=== PATIENT | male | born 1950 | race Caucasian/White ===

== ENCOUNTER 2024-10-31 01:44 | Emergency (ER) | payer MEDICARE, MEDICAID, SELFPAY ==
[2024-10-31] VITALS (19 sets, daily range): BP systolic 111–201; BP diastolic 56–148; PULSE 56–94; RESP 13–24; TEMP 36.8; O2SAT 94–100; BMI 45.6
--- NOTE | 2024-10-31 01:53 | EKG_ITS ---
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
--- NOTE | 2024-10-31 01:57 | DI.RAD.S_ITS ---
PROCEDURE: XR CHEST 1V INDICATIONS: chest pain TECHNIQUE: One view of the chest was acquired. COMPARISON: None. FINDINGS: Surgical changes and devices: Left chest wall dual lumen central venous catheter tip is in SVC. Lungs and pleura: Lungs are clear. No pleural effusions or pneumothorax. Mediastinum: Mediastinal contours appear normal. Heart size is normal. Bones and chest wall: No suspicious bony lesions. Overlying soft tissues appear unremarkable. IMPRESSION: No acute cardiopulmonary pathology. No discrepancies. Dictated by: Brien Isabel M.D. on 10/31/2024 at 8:19 Approved by: Brien Isabel M.D. on 10/31/2024 at 8:20
[2024-10-31] MEDS: ONDANSETRON 4 MG ODT SL (02:08)
[2024-10-31 03:16] LABS: Add Manual Diff / Slide Review NO; Basophils Absolute Auto 200 /uL (0-100); Basophils Percent Auto 2.1 % (0-2); Eosinophils Absolute Auto 300 /uL (0-450); Lymphocytes Absolute Auto 2600 /uL (1100-4500); Mean Corpuscular HGB Conc 34.1 % (30-36); Mean Corpuscular Hemoglobin 29.3 PG (26-34); Mean Corpuscular Volume 86.1 fL (80-100); Monocytes Absolute Auto 800 /uL (0-900); Monocytes Percent Auto 8.9 % (3-14); Neutrophils Absolute Auto 4900 /uL (1500-7000); Platelet Count 137 X10^3/uL (150-400); Red Blood Cell Count 4.42 X10^6/uL (4.5-5.9); Red Cell Distribution Width 15.4 % (11.6-14.8); White Blood Cell Count 8.7 X10^3/uL (4.5-11.0)
[2024-10-31 03:33] LABS: Lactate (Lactic Acid) 1.2 mmol/L (0.7-2.1)
[2024-10-31 03:34] LABS: Alanine Aminotransferase 17 IU/L (<50); Albumin 4.1 g/dL (3.5-5.0); Albumin Globulin Ratio 1.3 (1.0-2.8); Alkaline Phosphatase 70 U/L (38-126); Aspartate Aminotransferase 29 IU/L (17-59); BUN Creatinine Ratio 7.9 (6-22); Bilirubin Total 0.5 mg/dL (0.2-1.3); Blood Urea Nitrogen 48 mg/dL (9-20); Calcium 8.3 mg/dL (8.4-10.2); Carbon Dioxide 22 mmol/L (22-32); Chloride 101 mmol/L (98-107); Creatine Kinase 93 U/L (55-170); Estimated Glomerular Filt Rate 9 mL/min (>60); Globulin 3.1 g/dL (1.7-4.1); Glucose 194 mg/dL (70-99); HEMOLYSIS 15 (0-50); Lipase 210 U/L (23-300); Potassium 4.8 mmol/L (3.4-5.1); Sodium 134 mmol/L (137-145); Total Protein 7.2 g/dL (6.3-8.2)
[2024-10-31 03:40] LABS: Influenza A - CEPHEID Flu A NEGATIVE (NEGATIVE); Influenza B - CEPHEID Flu B NEGATIVE (NEGATIVE); Respiratory Syncytial Virus Negative (Negative)
[2024-10-31 03:46] LABS: Troponin I 0.021 ng/mL (0.01-0.034)
[2024-10-31 03:49] LABS: COVID-19 CEPHEID 4-PLEX PCR Negative (Negative)
--- NOTE | 2024-10-31 03:51 | ED.GENADULT ---
HPI - General Adult General Chief complaint: Weakness Stated complaint: Shaky Time Seen by Provider: 10/31/24 01:56 Source: EMS Mode of arrival: EMS History of Present Illness HPI narrative: 74-year-old male with history of dialysis dependent ESRD, has hemodialysis sessions My[facility]-Dsfwhjmj-Lunokcwd, due for hemodialysis later today, had episode of brief shakiness. No loss of consciousness. No fevers or chills or sweats. Screening EKG unremarkable. Troponin electrolytes unremarkable. Offered further testing, declined. Patient decided that he wanted to go home, transport to [facility] facility. Return precautions discussed. Related Data Home Medications Medication Instructions Recorded Confirmed atorvastatin 80 mg tablet 80 mg PO DAILY 10/31/24 10/31/24 insulin glargine 100 unit/mL (3 14 unit SUBCUT BID 10/31/24 10/31/24 mL) subcutaneous pen (Lantus Solostar U-100 Insulin) levothyroxine 88 mcg tablet 88 mcg PO DAILY 10/31/24 10/31/24 midodrine 10 mg tablet 10 mg PO 3XD 10/31/24 10/31/24 Allergies Allergy/AdvReac Type Severity Reaction Status Date / Time codeine Allergy Verified 10/31/24 01:56 Sulfa (Sulfonamide Allergy Verified 10/31/24 01:56 Antibiotics) Exam Narrative Exam Narrative: GENERAL: Well-developed patient, in mild distress. HEAD: Atraumatic. Normocephalic. EYES: Pupils equal round and reactive. Extraocular motions intact. No scleral icterus. No injection or drainage. ENT: Nose without bleeding, purulent drainage. Throat without erythema, tonsillar hypertrophy or exudate. Airway patent. NECK: Trachea midline. Non tender CARDIOVASCULAR: Regular rate and rhythm without murmurs, gallops, or rubs. RESPIRATORY: Clear to auscultation. Breath sounds equal bilaterally. No wheezes, rales, or rhonchi. GASTROINTESTINAL: Abdomen soft, non-tender, nondistended. EXTREMITIES: No edema or joint tenderness. BACK: Nontender without deformity or crepitance. No flank tenderness. NEURO: AOx3. Motor functions grossly nonfocal SKIN: No rash or erythema of visible areas Initial Vital Signs Initial Vital Signs: Vital Signs Temperature 98.2 F 10/31/24 01:47 Pulse Rate 76 10/31/24 01:47 Respiratory Rate 18 10/31/24 01:47 Blood Pressure 198/100 H 10/31/24 01:47 Pulse Oximetry 100 10/31/24 01:47 Oxygen Delivery Method Room Air 10/31/24 01:47 Course Orders Ordered: ED Orders 10/31/24 01:53 EKG-12 Lead Stat 10/31/24 01:57 XR chest 1V Stat Urinalysis and Microscopic Stat EKG-12 Lead Stat 10/31/24 02:41 Covid-19 + FLU A/B + RSV - PCR Stat 10/31/24 02:44 Complete Blood Count AUTO DIFF Stat Comprehensive Metabolic Panel Stat Lactate (Lactic Acid) Stat Lipase Stat Troponin & CK Cardiac Panel Stat 10/31/24 04:45 Troponin I Stat Sodium Chloride (Normal Saline 0.9%) 1,000 mls @ 150 mls/hr IV CONT PERRY Last Admin: 10/31/24 03:46 Dose: Not Given Documented By: LATRELL Discontinued Medications Ondansetron HCl (Ondansetron 4 Mg/2 Ml Inj) 4 mg IV NOW ONE Stop: 10/31/24 02:01 Last Admin: 10/31/24 03:20 Dose: Not Given Documented By: LATRELL Ondansetron HCl (Ondansetron 4 Mg Odt) 4 mg SL NOW ONE Stop: 10/31/24 02:02 Last Admin: 10/31/24 02:08 Dose: 4 mg Documented By: LATRELL Vital Signs Vital signs: Vital Signs - 8 hr 10/31/24 01:47 Temperature 98.2 F Pulse Rate 76 Respiratory Rate 18 Blood Pressure 198/100 H Pulse Oximetry 100 Oxygen Delivery Method Room Air Medical Decision Making Lab Data 10/31/24 02:44 10/31/24 02:44 Labs: Lab Results 10/31/24 10/31/24 Range/Units 02:41 02:44 WBC 8.7 (4.5-11.0) X10^3/uL RBC 4.42 L (4.5-5.9) X10^6/uL Hgb 13.0 L (13.5-17.5) g/dL Hct 38.0 L (41-53) % MCV 86.1 (80-100) fL MCH 29.3 (26-34) PG MCHC 34.1 (30-36) % RDW 15.4 H (11.6-14.8) % Plt Count 137 L (150-400) X10^3/uL Neut % (Auto) 56.0 (50-75) % Lymph % (Auto) 30.0 (25-40) % [place] % (Auto) 8.9 (3-14) % Eos % (Auto) 3.0 (2-4) % Baso % (Auto) 2.1 H (0-2) % Neut # (Auto) 4900 (4050-3944) /uL Lymph # (Auto) 2600 (8453-0498) /uL [place] # (Auto) 800 (0-900) /uL Eos # (Auto) 300 (0-450) /uL Baso # (Auto) 200 H (0-100) /uL Sodium 134 L (137-145) mmol/L Potassium 4.8 (3.4-5.1) mmol/L Chloride 101 (98-107) mmol/L Carbon Dioxide 22 (22-32) mmol/L BUN 48 H (9-20) mg/dL Creatinine 6.06 H (0.66-1.25) mg/dL Estimated GFR 9 L (>60) mL/min BUN/Creatinine Ratio 7.9 (6-22) Glucose 194 H (70-99) mg/dL Lactate 1.2 (0.7-2.1) mmol/L Calcium 8.3 L (8.4-10.2) mg/dL Total Bilirubin 0.5 (0.2-1.3) mg/dL AST 29 (17-59) IU/L ALT 17 (<50) IU/L Alkaline Phosphatase 70 (38-126) U/L Total Creatine Kinase 93 (55-170) U/L Troponin I 0.021 (0.01-0.034) ng/mL Total Protein 7.2 (6.3-8.2) g/dL Albumin 4.1 (3.5-5.0) g/dL Globulin 3.1 (1.7-4.1) g/dL Albumin/Globulin Ratio 1.3 (1.0-2.8) Lipase 210 (23-300) U/L SARS-CoV-2 (PCR) Negative (Negative) Influenza A (RT-PCR) Flu a negative (NEGATIVE) Influenza B (RT-PCR) Flu b negative (NEGATIVE) RSV (PCR) Negative (Negative) ECG Data Attestation: I personally reviewed and interpreted this ECG as follows: Interpretation: Normal sinus rhythm with heart rate 84, first-degree AV block with AK 210. No obvious ST segment elevation or depression changes. QRS 90, QTC 439. MDM Narrative Medical decision making narrative: 74-year-old male with history of end-stage renal disease, on Oqbgkvc-Muljwzgb-Aicnyzji hemodialysis regimen, due for next HD session later today, had shakiness episode of unclear etiology, with some associated nausea. No shortness of breath, no headache, no stroke-like symptoms. Seems to be recovered without specific treatment. Labs pending. Chest x-ray shows no acute process, see radiology report. No mention of fluid overload changes EKG with first-degree AV block, no acute ischemic changes. Discharge Plan Departure Patient Disposition: Home Clinical Impression: Shakiness Activity Restrictions/Additional Instructions: Resolved shakiness of unclear cause. History of diabetes. History of kidney disease, next hemodialysis rotation do later today. No fever on triage, unremarkable vital signs. Glucose and electrolytes unremarkable. EKG and troponin blood testing unremarkable. Consider further monitoring and interval repeat blood testing troponin, declined for now. You felt better without specific treatment and wanted to go home, did not want further evaluation. Discharged home per your request. Follow up with your traffic superintendent and your primary care provider as scheduled. Follow up with your hemodialysis providers later today as scheduled. Return if change worsening symptoms or any concerns prior. Prescriptions: No Action atorvastatin 80 mg tablet 80 mg PO DAILY levothyroxine 88 mcg tablet 88 mcg PO DAILY midodrine 10 mg tablet 10 mg PO 3XD insulin glargine [Lantus Solostar U-100 Insulin] 100 unit/mL (3 mL) insulin pen 14 unit SUBCUT BID Stand Alone Forms: Patient Portal/API/Survey
== END 2024-10-31 07:11 | disposition home or self-care (01) ==
PROVIDERS: Emergency Provider Emergency Medicine
DX: R25.1 Tremor, unspecified (principal); E11.22 Type 2 diabetes mellitus with diabetic chronic kidney disease; N18.6 End stage renal disease; Z99.2 Dependence on renal dialysis; Z79.4 Long term (current) use of insulin
CPT/HCPCS: 0241U; 36415; 71045; 80053; 82550; 83605; 83690; 84484; 85025; 93005; 93010; 99283; 99284

== ENCOUNTER 2025-01-07 07:55 | Emergency (ER) | payer MEDICARE, MEDICAID, SELFPAY ==
[2025-01-07] VITALS (32 sets, daily range): BP systolic 116–207; BP diastolic 66–105; PULSE 65–73; RESP 14–20; TEMP 36.6; O2SAT 93–99; BMI 31.8
--- NOTE | 2025-01-07 08:04 | EKG_ITS ---
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
--- NOTE | 2025-01-07 08:33 | PC.NURSE ---
2 unsuccessful iv attempts, notified lab for a draw and DI nurse called for assistance.
--- NOTE | 2025-01-07 08:53 | DI.RAD.S_ITS ---
PROCEDURE: XR CHEST 1V INDICATIONS: chest pain TECHNIQUE: One view of the chest was acquired. COMPARISON: [facility], CR, XR CHEST 1V, 10/31/2024, 2:26. FINDINGS: Surgical changes and devices: Left-sided tunneled dialysis catheter with tip projecting over the cavoatrial junction. Lungs and pleura: Lungs are clear. No pleural effusions or pneumothorax. Mediastinum: Mediastinal contours appear normal. Heart size is normal. Bones and chest wall: No suspicious bony lesions. Overlying soft tissues appear unremarkable. IMPRESSION: No acute cardiopulmonary abnormality is seen. Dictated by: Olive Lemus MD, PhD on 01/07/2025 at 9:47 Approved by: Olive Lemus MD, PhD on 01/07/2025 at 9:47
[2025-01-07 09:08] LABS: Alanine Aminotransferase 23 IU/L (<50); Albumin 4.1 g/dL (3.5-5.0); Albumin Globulin Ratio 1.3 (1.0-2.8); Alkaline Phosphatase 64 U/L (38-126); Blood Urea Nitrogen 77 mg/dL (9-20); Calcium 9.0 mg/dL (8.4-10.2); Carbon Dioxide 12 mmol/L (22-32); Chloride 114 mmol/L (98-107); Creatine Kinase 121 U/L (55-170); Globulin 3.2 g/dL (1.7-4.1); Glucose 76 mg/dL (70-99); Sodium 140 mmol/L (137-145); Total Protein 7.3 g/dL (6.3-8.2)
[2025-01-07 09:11] LABS: INR 1.0 (0.9-1.3); Prothrombin Time 11.8 SECONDS (9.4-12.5)
[2025-01-07 09:14] LABS: PTT Partial Thromboplastin Tim 26 SECONDS (25.1-36.5)
[2025-01-07 09:17] LABS: Hematocrit 45.7 % (41-53); Hemoglobin 15.2 g/dL (13.5-17.5); Lymphocytes Absolute Auto 1900 /uL (1100-4500); Mean Corpuscular HGB Conc 33.2 % (30-36); Mean Corpuscular Hemoglobin 28.6 PG (26-34); Mean Corpuscular Volume 86.2 fL (80-100); Platelet Count 130 X10^3/uL (150-400)
[2025-01-07] MEDS: ASPIRIN 81 MG CHEW TAB 324 MG PO (09:22)
[2025-01-07 09:23] LABS: Add Manual Diff / Slide Review SLIDE REVIEW
[2025-01-07 09:25] LABS: Procalcitonin 0.151 ng/mL (<0.5)
[2025-01-07 09:27] LABS: Estimated Glomerular Filt Rate 6 mL/min (>60); HEMOLYSIS 47 (0-50)
[2025-01-07 09:31] LABS: Troponin I 0.217 ng/mL (0.01-0.034)
[2025-01-07 09:32] LABS: Potassium 6.8 mmol/L (3.4-5.1)
[2025-01-07 09:36] LABS: NT-proBNP (BNP-Adult 18+) 10000 pg/mL (<125)
[2025-01-07] MEDS: SODIUM CHLORIDE 0.9% 1,000 ML 150 ML IV (09:45)
[2025-01-07] MEDS: INSULIN REGULAR 100 UNIT/ML 3 ML VIAL IV ×2 (09:45→13:02)
[2025-01-07] MEDS: DEXTROSE 50 % IN WATER 25 GM/50 ML SYRINGE IV ×2 (09:46→13:04)
[2025-01-07] MEDS: SODIUM POLYSTYRENE SULFON/SORB 15 GM/60 ML CUP 30 GM PO (09:47)
[2025-01-07 09:52] LABS: RBC Morphology Normal Morphology
[2025-01-07] MEDS: CALCIUM GLUCONATE 9.3 MEQ in SODIUM CHLORIDE 0.9% 50 ML 140 MEQ IV (10:18)
[2025-01-07] MEDS: ALBUTEROL/IPRATROPIUM 3 ML AMPUL INH (10:31)
[2025-01-07 12:28] LABS: Alanine Aminotransferase 21 IU/L (<50); Albumin 3.8 g/dL (3.5-5.0); Albumin Globulin Ratio 1.3 (1.0-2.8); Alkaline Phosphatase 61 U/L (38-126); Blood Urea Nitrogen 76 mg/dL (9-20); Calcium 9.1 mg/dL (8.4-10.2); Carbon Dioxide 13 mmol/L (22-32); Chloride 114 mmol/L (98-107); Estimated Glomerular Filt Rate 7 mL/min (>60); Globulin 2.9 g/dL (1.7-4.1); Glucose 84 mg/dL (70-99); HEMOLYSIS 18 (0-50); Sodium 141 mmol/L (137-145); Total Protein 6.7 g/dL (6.3-8.2)
[2025-01-07 12:29] LABS: Troponin I 0.503 ng/mL (0.01-0.034)
[2025-01-07 12:29] LABS: Potassium 6.1 mmol/L (3.4-5.1)
[2025-01-07] MEDS: HEPARIN 5,000 UNIT/ML VIAL 5000 UNIT IV (13:02)
[2025-01-07] MEDS: HEPARIN DRIP 25,000 UNIT/500 ML IV.SOLN 20.253 UNIT IV (13:02)
[2025-01-07] MEDS: ALBUTEROL 2.5 MG/3 ML NEB (ADULT) INH (14:02)
--- NOTE | 2025-01-07 14:29 | PC.NURSE ---
Pt refuses second IV at this time. Risks and benefits of refusing secondary line explained by charge nurse. IV heparin started. Next PTT draw 1900, will need straight stick at that time.
[2025-01-07 17:22] LABS: Blood Urea Nitrogen 72 mg/dL (9-20); Calcium 8.9 mg/dL (8.4-10.2); Carbon Dioxide 13 mmol/L (22-32); Chloride 114 mmol/L (98-107); Estimated Glomerular Filt Rate 7 mL/min (>60); Glucose 78 mg/dL (70-99); HEMOLYSIS < 15 (0-50); Sodium 140 mmol/L (137-145)
[2025-01-07 17:24] LABS: Potassium 5.5 mmol/L (3.4-5.1)
--- NOTE | 2025-01-07 17:33 | ED.CHESTPAIN ---
HPI - Chest Pain General Chief Complaint: Chest Pain Stated Complaint: Chest Pain and Short of Breath Time Seen by Provider: 01/07/25 08:53 Source: patient and EMS Mode of arrival: EMS Limitations: no limitations History of Present Illness HPI narrative: Jeff Jung is a 74-year-old man with a history of end-stage renal disease on dialysis who had his nonfunctioning dialysis port replaced on of last week. He subsequently went to dialysis on Monday or Monday he does not remember when and they were unable to successfully use the port for dialysis. Today the patient comes in for left-sided chest pain which was there upon awakening today. He denies any nausea, vomiting, lightheadedness, palpitations, shortness of breath. He denies any abdominal pain. He denies any recent fever chills sweats or illness. He has no other concerns or complaints at this time. Related Data Home Medications ?Medication ?Instructions ?Recorded ?Confirmed atorvastatin 80 mg tablet 80 mg PO DAILY 10/31/24 10/31/24 insulin glargine 100 unit/mL (3 14 unit SUBCUT BID 10/31/24 10/31/24 mL) subcutaneous pen (Lantus Solostar U-100 Insulin) levothyroxine 88 mcg tablet 88 mcg PO DAILY 10/31/24 10/31/24 midodrine 10 mg tablet 10 mg PO 3XD 10/31/24 10/31/24 Allergies Allergy/AdvReac Type Severity Reaction Status Date / Time codeine Allergy Verified 10/31/24 01:56 Sulfa (Sulfonamide Allergy Verified 10/31/24 01:56 Antibiotics) Exam Initial Vital Signs Initial Vital Signs: Vital Signs Pulse Rate 72 01/07/25 08:12 Pulse Oximetry 96 01/07/25 08:12 Const General: cooperative, No in distress and ill appearing (chronically) [facility] Head: normal to inspection, normocephalic and atraumatic Eyes General: Yes appearance normal, both eyes and all related structures Pupils: PERRL EOM: EOM intact bilaterally Neck Neck: normal visual inspection, no meningeal signs, trachea midline, supple and No tender Resp Effort & Inspection: normal respiratory effort Auscultation: clear to auscultation bilaterally Cardio Rate: regular rate Rhythm: regular rhythm Heart Sounds: S1 normal and S2 normal GI Palpation: soft and No tender Auscultation: normal bowel sounds Neuro General: patient alert, patient awake, patient oriented x3 and CN's II-XI intact bilaterally Course Course Course Narrative: Patient seen and examined by myself upon arrival in the ER. He did have tenderness in the location of his chest pain nevertheless given his risk factors we did a cardiac workup. Initial labs revealed a positive troponin as well as a grossly elevated potassium. The high potassium was immediately treated with appropriate medications. This was rechecked multiple times over the course of the ER stare and continued to improve and was treated with the appropriate medications multiple times. Since the patient initially had reproducible chest pain and severe kidney failure that could explain his elevated troponin I waited for the 2nd troponin before starting the patient on IV heparin for NSTEMI since the 2nd troponin was up trending. Since the patient will need ongoing dialysis may need his dialysis port replaced and should have Cardiology consultation he will be transferred to [facility] where he was accepted by Dr. Vilchis. He was transferred in stable hemodynamic condition on heparin drip. Latest potassium prior to discharge was 5.5 down from 6.8. Orders Ordered: ED Orders 01/07/25 08:40 Complete Blood Count AUTO DIFF Stat Comprehensive Metabolic Panel Stat D Dimer Stat NT-proBNP (BNP-Adult 18+) Stat PTT Partial Thromboplastin Jose Luis Stat Procalcitonin Stat Prothrombin Time INR Stat Troponin & CK Cardiac Panel Stat 01/07/25 08:53 XR chest 1V Stat Urinalysis and Microscopic Stat EKG-12 Lead Stat 01/07/25 11:12 Trop I [Troponin I] Stat 01/07/25 12:05 CMP [Comprehensive Metabolic Panel] Stat 01/07/25 14:13 BMP [Basic Metabolic Panel] Stat 01/07/25 16:53 BMP [Basic Metabolic Panel] Stat Trop I [Troponin I] Stat Dextrose (Dextrose 50 % In Water 25 Gm/50 Ml Syringe) 25 gm IV PRN PRN PRN Reason: Hypoglycemia Last Admin: 01/07/25 13:04 Dose: 25 gm Documented By: ES Sodium Chloride (Normal Saline 0.9%) 1,000 mls @ 150 mls/hr IV CONT PERRY Last Admin: 01/07/25 09:45 Dose: 150 mls/hr Documented By: ES Heparin Sodium/Dextrose (Heparin Drip) 25,000 unit in 500 mls @ 20.04 mls/hr IV CONT PERRY; Protocol Last Admin: 01/07/25 13:02 Dose: 9.5 units/kg/hr, 20.253 mls/hr Documented By: MIGUEL ANGEL Co-signed By: SB Discontinued Medications Albuterol (Albuterol 2.5 Mg/3 Ml Neb (Adult)) 2.5 mg INH NOW ONE Stop: 01/07/25 12:46 Last Admin: 01/07/25 14:02 Dose: 2.5 mg Documented By: NATHAN Albuterol/Ipratropium (Albuterol/Ipratropium 3 Ml Ampul) 3 ml INH NOW ONE Stop: 01/07/25 09:34 Last Admin: 01/07/25 10:31 Dose: 3 ml Documented By: NAVA Aspirin (Aspirin 81 Mg Chew Tab) 324 mg PO NOW ONE Stop: 01/07/25 08:54 Last Admin: 01/07/25 09:22 Dose: 324 mg Documented By: MIGUEL ANGEL Dextrose (Dextrose 50 % In Water 25 Gm/50 Ml Syringe) 25 gm IV NOW ONE Stop: 01/07/25 09:34 Last Admin: 01/07/25 09:46 Dose: 25 gm Documented By: MIGUEL ANGEL Heparin Sodium (Porcine) (Heparin 5,000 Unit/Ml Vial) 5,000 unit IV NOW ONE Stop: 01/07/25 12:48 Last Admin: 01/07/25 13:02 Dose: 5,000 unit Documented By: MIGUEL ANGEL Hydromorphone HCl (Hydromorphone 1 Mg Inj) 1 mg IV NOW ONE Stop: 01/07/25 16:42 Calcium Gluconate 9.3 meq/ (Sodium Chloride) 70 mls @ 140 mls/hr IV NOW ONE Stop: 01/07/25 10:02 Last Infusion: 01/07/25 10:48 Dose: Infused Documented By: MIGUEL ANGEL Admin: 01/07/25 10:18 Dose: 140 mls/hr Documented By: MIGUEL ANGEL Insulin Human Regular (Insulin Regular 100 Unit/Ml 3 Ml Vial) 5 unit IV NOW ONE Stop: 01/07/25 09:34 Last Admin: 01/07/25 09:45 Dose: 5 unit Documented By: MIGUEL ANGEL Co-signed By: GHAZALA Insulin Human Regular (Insulin Regular 100 Unit/Ml 3 Ml Vial) 5 unit IV NOW ONE Stop: 01/07/25 12:46 Last Admin: 01/07/25 13:02 Dose: 5 unit Documented By: MIGUEL ANGEL Co-signed By: SB Sodium Polystyrene Sulfonate (Sodium Polystyrene Sulfon/Sorb 15 Gm/60 Ml Cup) 30 gm PO NOW ONE Stop: 01/07/25 09:34 Last Admin: 01/07/25 09:47 Dose: 30 gm Documented By: MIGUEL ANGEL Vital Signs Vital signs: Vital Signs - 8 hr 01/07/25 09:53 01/07/25 10:00 01/07/25 10:17 Pulse Rate 69 66 72 Respiratory Rate 14 16 Blood Pressure Pulse Oximetry 98 96 97 Oxygen Delivery Method Oxygen Flow Rate Fraction of Inspired Oxygen 01/07/25 10:17 01/07/25 10:30 01/07/25 10:30 Pulse Rate 71 Respiratory Rate Blood Pressure 116/66 155/98 H Pulse Oximetry 97 Oxygen Delivery Method Oxygen Flow Rate Fraction of Inspired Oxygen 01/07/25 10:39 01/07/25 11:00 01/07/25 11:00 Pulse Rate 69 71 Respiratory Rate 16 14 Blood Pressure 144/77 H Pulse Oximetry 97 94 Oxygen Delivery Method Room Air Oxygen Flow Rate Fraction of Inspired Oxygen 01/07/25 11:30 01/07/25 11:30 01/07/25 12:00 Pulse Rate 69 68 Respiratory Rate 14 16 Blood Pressure 130/66 Pulse Oximetry 94 93 Oxygen Delivery Method Oxygen Flow Rate Fraction of Inspired Oxygen 01/07/25 12:00 01/07/25 12:30 01/07/25 12:31 Pulse Rate 72 73 Respiratory Rate 17 16 Blood Pressure 141/75 H Pulse Oximetry 94 95 Oxygen Delivery Method Oxygen Flow Rate Fraction of Inspired Oxygen 01/07/25 12:31 01/07/25 13:00 01/07/25 13:00 Pulse Rate 72 Respiratory Rate 15 Blood Pressure 183/79 H 168/88 H Pulse Oximetry 97 Oxygen Delivery Method Oxygen Flow Rate Fraction of Inspired Oxygen 01/07/25 13:35 01/07/25 13:37 01/07/25 13:37 Pulse Rate 72 71 Respiratory Rate 17 Blood Pressure 141/75 H Pulse Oximetry 97 95 Oxygen Delivery Method Oxygen Flow Rate Fraction of Inspired Oxygen 01/07/25 14:00 01/07/25 14:00 01/07/25 14:02 Pulse Rate 71 70 Respiratory Rate 19 18 Blood Pressure 148/83 H Pulse Oximetry 97 97 Oxygen Delivery Method Room Air Oxygen Flow Rate 0 Fraction of Inspired Oxygen 21 MDM - Chest Pain Differential Diagnosis Differential diagnosis: Likely pneumothorax, unstable angina pectoris, atypical chest pain, st elevation myocardial infarction, costochondritis and chest pain Lab Data 01/07/25 08:40 01/07/25 16:53 Labs: Lab Results 01/07/25 01/07/25 01/07/25 Range/Units 08:40 10:30 11:12 WBC 10.6 (4.5-11.0) X10^3/uL RBC 5.30 (4.5-5.9) X10^6/uL Hgb 15.2 (13.5-17.5) g/dL Hct 45.7 (41-53) % MCV 86.2 (80-100) fL MCH 28.6 (26-34) PG MCHC 33.2 (30-36) % RDW 17.0 H (11.6-14.8) % Plt Count 130 L (150-400) X10^3/uL Neut % (Auto) 72.7 (50-75) % Lymph % (Auto) 18.0 L (25-40) % [place] % (Auto) 6.4 (3-14) % Eos % (Auto) 1.8 L (2-4) % Baso % (Auto) 1.1 (0-2) % Neut # (Auto) 7700 H (1618-4819) /uL Lymph # (Auto) 1900 (3350-1077) /uL [place] # (Auto) 700 (0-900) /uL Eos # (Auto) 200 (0-450) /uL Baso # (Auto) 100 (0-100) /uL Platelet Estimate Adequate on smear RBC Morphology Normal morphology PT 11.8 (9.4-12.5) SECONDS INR 1.0 (0.9-1.3) APTT 26 (25.1-36.5) SECONDS D-Dimer 08044 H (<500) ng/ml Sodium 140 (137-145) mmol/L Potassium 6.8 H* (3.4-5.1) mmol/L Chloride 114 H (98-107) mmol/L Carbon Dioxide 12 L (22-32) mmol/L BUN 77 H (9-20) mg/dL Creatinine 8.06 H* (0.66-1.25) mg/dL Estimated GFR 6 L (>60) mL/min BUN/Creatinine Ratio 9.6 (6-22) Glucose 76 (70-99) mg/dL POC Whole Bld Glucose 119 H (70-99) mg/dL Calcium 9.0 (8.4-10.2) mg/dL Total Bilirubin 0.5 (0.2-1.3) mg/dL AST 32 (17-59) IU/L ALT 23 (<50) IU/L Alkaline Phosphatase 64 (38-126) U/L Total Creatine Kinase 121 (55-170) U/L Troponin I 0.217 H* 0.503 H* (0.01-0.034) ng/mL NT-Pro-B Natriuret Pep 69620 H (<125) pg/mL Total Protein 7.3 (6.3-8.2) g/dL Albumin 4.1 (3.5-5.0) g/dL Globulin 3.2 (1.7-4.1) g/dL Albumin/Globulin Ratio 1.3 (1.0-2.8) Procalcitonin 0.151 (<0.5) ng/mL 01/07/25 01/07/25 01/07/25 Range/Units 12:05 14:22 16:53 WBC (4.5-11.0) X10^3/uL RBC (4.5-5.9) X10^6/uL Hgb (13.5-17.5) g/dL Hct (41-53) % MCV (80-100) fL MCH (26-34) PG MCHC (30-36) % RDW (11.6-14.8) % Plt Count (150-400) X10^3/uL Neut % (Auto) (50-75) % Lymph % (Auto) (25-40) % [place] % (Auto) (3-14) % Eos % (Auto) (2-4) % Baso % (Auto) (0-2) % Neut # (Auto) (5752-0543) /uL Lymph # (Auto) (4294-9446) /uL [place] # (Auto) (0-900) /uL Eos # (Auto) (0-450) /uL Baso # (Auto) (0-100) /uL Platelet Estimate RBC Morphology PT (9.4-12.5) SECONDS INR (0.9-1.3) APTT (25.1-36.5) SECONDS D-Dimer (<500) ng/ml Sodium 141 140 (137-145) mmol/L Potassium 6.1 H 5.5 H (3.4-5.1) mmol/L Chloride 114 H 114 H (98-107) mmol/L Carbon Dioxide 13 L 13 L (22-32) mmol/L BUN 76 H 72 H (9-20) mg/dL Creatinine 7.91 H* 7.85 H* (0.66-1.25) mg/dL Estimated GFR 7 L 7 L (>60) mL/min BUN/Creatinine Ratio 9.6 9.2 (6-22) Glucose 84 78 (70-99) mg/dL POC Whole Bld Glucose 88 (70-99) mg/dL Calcium 9.1 8.9 (8.4-10.2) mg/dL Total Bilirubin 0.5 (0.2-1.3) mg/dL AST 26 (17-59) IU/L ALT 21 (<50) IU/L Alkaline Phosphatase 61 (38-126) U/L Total Creatine Kinase (55-170) U/L Troponin I (0.01-0.034) ng/mL NT-Pro-B Natriuret Pep (<125) pg/mL Total Protein 6.7 (6.3-8.2) g/dL Albumin 3.8 (3.5-5.0) g/dL Globulin 2.9 (1.7-4.1) g/dL Albumin/Globulin Ratio 1.3 (1.0-2.8) Procalcitonin (<0.5) ng/mL ECG Data Interpretation: Sinus rhythm with first-degree AV block. Rate 73. LAFB. Discharge Plan Departure Patient Disposition: [facility] Clinical Impression: Acute non-ST elevation myocardial infarction (NSTEMI), Acute hyperkalemia Prescriptions: No Action atorvastatin 80 mg tablet 80 mg PO DAILY levothyroxine 88 mcg tablet 88 mcg PO DAILY midodrine 10 mg tablet 10 mg PO 3XD insulin glargine [Lantus Solostar U-100 Insulin] 100 unit/mL (3 mL) insulin pen 14 unit SUBCUT BID
[2025-01-07 17:40] LABS: Troponin I 0.519 ng/mL (0.01-0.034)
[2025-01-07] MEDS: HYDROMORPHONE 1 MG INJ IV (18:29)
== END 2025-01-07 18:58 | disposition short-term general hospital (02) ==
PROVIDERS: Emergency Provider Emergency Medicine
DX: I21.4 Non-ST elevation (NSTEMI) myocardial infarction (principal); E87.5 Hyperkalemia; R06.02 Shortness of breath
CPT/HCPCS: 36415; 71045; 80048; 80053; 82550; 82962; 83880; 84145; 84484; 85025; 85379; 85610; 85730; 93005; 94640; 96361; 96365; 96375; 96376; 99284; J0612; J1171; J1644; J7613

== ENCOUNTER 2025-05-07 16:50 | Emergency (ER) | payer MEDICARE, MEDICAID, SELFPAY ==
[2025-05-07] VITALS (13 sets, daily range): BP systolic 144–197; BP diastolic 80–105; PULSE 63–67; RESP 14; TEMP 36.6; O2SAT 95–99; BMI 32.5
--- NOTE | 2025-05-07 17:08 | DI.US.S_ITS ---
PROCEDURE: US PERIPH VENOUS UP EXTREM RT INDICATIONS: wrong order, fistula swollen, hard 1 week old L forearm TECHNIQUE: Real-time imaging, as well as color and pulse Doppler interrogation, was performed of the upper extremity deep veins from the inferior neck to the antecubital fossa. COMPARISON: None. FINDINGS: The internal jugular vein, visualized portions of the subclavian vein, axillary, and brachial veins are free of intraluminal thrombus. Where physically possible, the veins are normally compressible. Color and pulse Doppler demonstrate normal intraluminal flow, with expected phasicity and pulsatility. Additional scanning of the cephalic and basilic veins of the superficial system demonstrates normal compressibility, without thrombus. Right upper arm soft tissue edema is seen. Anechoic collection is noted in anterior aspect of right elbow measures up to 4.1 x 5.8 x 2.3 cm in size and show no internal vascularity. Cephalic vein in distal upper arm is patent to the level of fistula. Right radial artery is patent at the fistula. Right cephalic vein at fistula show velocity of 164.3 cm/second. More proximal right cephalic vein show velocity of 352.8 cm/second. IMPRESSION: 1. No findings of upper extremity deep venous thrombosis can be seen. 2. Soft tissue edema in right upper extremity suggestive of cellulitis. 3. Possible seroma in right anterior elbow soft tissue measures 4.1 x 5.8 x 2.3 cm in size. 4. Right arm fistula is patent. Dictated by: Brien Isabel M.D. on 05/07/2025 at 18:26 Approved by: Brien Isabel M.D. on 05/07/2025 at 18:30
--- NOTE | 2025-05-07 17:11 | ED.GENADULT ---
HPI - General Adult <Diamante Ramos DO - Last Filed: 05/08/25 08:12> General Chief complaint: Skin/Abscess/Foreign Body Stated complaint: New fistula, pain/swelling Time Seen by Provider: 05/07/25 16:50 Source: patient, RN notes reviewed and old records reviewed Mode of arrival: EMS Limitations: no limitations History of Present Illness HPI narrative: 75-year-old male history of end-stage renal disease on dialysis for 3 years, hypothyroidism, diabetes with prior right BKA presents with complaint of a fistula placement last at [place]. Patient states has been increasingly swollen he has had some redness and discomfort and a little bit of warmth. He denies numbness or tingling he denies any weakness. Denies any fevers or chills. He states it seems to be swelling localized to that area. Denies any chest pain or shortness of breath. No nausea or vomiting. No GI or urinary symptoms. Patient states fistula was placed for access for dialysis he currently has a catheter in place in the right groin. Patient states has not allergy to codeine and sulfa. 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 He states this was secondary to frostbite. No daily tobacco, occasional alcohol, denies any IV or injection recreational drugs. Patient's primary care is Dr. Dolan in [place]. Related Data Home Medications ?Medication ?Instructions ?Recorded ?Confirmed atorvastatin 80 mg tablet 80 mg PO DAILY 10/31/24 10/31/24 insulin glargine 100 unit/mL (3 14 unit SUBCUT BID 10/31/24 10/31/24 mL) subcutaneous pen (Lantus Solostar U-100 Insulin) levothyroxine 88 mcg tablet 88 mcg PO DAILY 10/31/24 10/31/24 midodrine 10 mg tablet 10 mg PO 3XD 10/31/24 10/31/24 Previous Rx's ?Medication ?Instructions ?Recorded cephalexin 500 mg capsule 500 mg PO BID 7 days #14 caps 05/07/25 Allergies Allergy/AdvReac Type Severity Reaction Status Date / Time codeine Allergy Verified 05/07/25 16:59 Sulfa (Sulfonamide Allergy Verified 05/07/25 16:59 Antibiotics) Review of Systems <Diamante Ramos DO - Last Filed: 05/08/25 08:12> Review of Systems ROS Unobtainable: All systems reviewed & are unremarkable except as noted in HPI and below Patient History <Diamante Ramos DO - Last Filed: 05/08/25 08:12> Social History Smoking Status: Unknown if ever smoked Smoking Status: Unknown if ever smoked Exam <Diamante Ramos DO - Last Filed: 05/08/25 08:12> Narrative Exam Narrative: GENERAL: Alert and oriented x three, male in mild distress. HEENT: Head normocephalic, atraumatic, EOMI, pupils reactive, face symmetric, moist mucous membranes NECK: Supple, full range of motion CARDIOVASCULAR: Regular rate and rhythm without murmurs, rubs or gallops. RESPIRATORY: Breath sounds equal bilaterally, no wheezes rales or rhonchi. ABDOMEN: Soft, nontender. Normoactive bowel sounds all 4 quadrants. No guarding or rebound, rigidity, no mass : No CVA tenderness EXTREMITIES: Normal range of motion, no clubbing. Neurovascularly intact. patient has swelling, some warmth and induration there some mild erythema I did not palpate any abscess. No fluctuance. of the left proximal forearm over the area of his fistula, I am not able to palpate a thrill, I am able unauscultate a thrill, Can feel fullness which feels like it vessel it feels firm running underneath the proximal forearm over the posterior elbow and into the distal arm. patient has 2+ pulses bilaterally. Has full range of motion. Swelling seems to be localized to the area of the fistula. Patient has full range of motion with normal sensation throughout. Patient does have a dialysis catheter in his right groin. has a BKA of the right lower extremity. NEUROLOGICAL: Cranial nerves II through XII grossly intact. Moving all extremities SKIN: Warm, dry, no petechiae, no rashes or lesions. Initial Vital Signs Initial Vital Signs: Vital Signs Pulse Oximetry 96 05/07/25 16:53 <Genevieve Matthew DO - Last Filed: 05/07/25 20:53> Initial Vital Signs Initial Vital Signs: Vital Signs Pulse Oximetry 96 05/07/25 16:53 Course <Diamante Ramos DO - Last Filed: 05/08/25 08:12> Orders Ordered: Discontinued Medications Ceftriaxone Sodium 1,000 mg/ (Sodium Chloride) 100 mls @ 200 mls/hr IV NOW ONE Stop: 05/07/25 19:51 Last Infusion: 05/07/25 20:46 Dose: Infused Documented By: Admin: 05/07/25 20:02 Dose: 200 mls/hr Documented By: NICHOLAS Morphine Sulfate (Morphine 4 Mg/Ml Inj) 4 mg IV NOW ONE Stop: 05/07/25 17:09 Last Admin: 05/07/25 17:52 Dose: 4 mg Documented By: NICHOLAS Ondansetron HCl (Ondansetron 4 Mg/2 Ml Inj) 4 mg IV NOW ONE Stop: 05/07/25 19:05 Last Admin: 05/07/25 19:36 Dose: 4 mg Documented By: NICHOLAS Vital Signs Vital signs: Vital Signs - 8 hr 05/07/25 16:53 05/07/25 16:54 05/07/25 16:54 Temperature Pulse Rate 63 Respiratory Rate Blood Pressure 178/86 H Pulse Oximetry 96 98 Oxygen Delivery Method 05/07/25 16:59 05/07/25 17:00 05/07/25 17:01 Temperature 97.9 F Pulse Rate 65 65 Respiratory Rate 14 Blood Pressure 178/86 H 144/80 H Pulse Oximetry 97 98 Oxygen Delivery Method Room Air 05/07/25 17:01 05/07/25 17:30 05/07/25 18:00 Temperature Pulse Rate 64 63 63 Respiratory Rate Blood Pressure Pulse Oximetry 97 95 97 Oxygen Delivery Method 05/07/25 18:30 05/07/25 18:33 05/07/25 18:33 Temperature Pulse Rate 67 64 Respiratory Rate Blood Pressure 173/90 H Pulse Oximetry 97 95 Oxygen Delivery Method 05/07/25 19:00 05/07/25 19:01 05/07/25 19:01 Temperature Pulse Rate 64 64 Respiratory Rate Blood Pressure 176/89 H Pulse Oximetry 97 98 Oxygen Delivery Method 05/07/25 19:29 05/07/25 20:25 Temperature Pulse Rate Respiratory Rate Blood Pressure 197/105 H Pulse Oximetry 99 Oxygen Delivery Method <Genevieve Matthew DO - Last Filed: 05/07/25 20:53> Orders Ordered: Discontinued Medications Ceftriaxone Sodium 1,000 mg/ (Sodium Chloride) 100 mls @ 200 mls/hr IV NOW ONE Stop: 05/07/25 19:51 Last Infusion: 05/07/25 20:46 Dose: Infused Documented By: Admin: 05/07/25 20:02 Dose: 200 mls/hr Documented By: NICHOLAS Morphine Sulfate (Morphine 4 Mg/Ml Inj) 4 mg IV NOW ONE Stop: 05/07/25 17:09 Last Admin: 05/07/25 17:52 Dose: 4 mg Documented By: NICHOLAS Ondansetron HCl (Ondansetron 4 Mg/2 Ml Inj) 4 mg IV NOW ONE Stop: 05/07/25 19:05 Last Admin: 05/07/25 19:36 Dose: 4 mg Documented By: NICHOLAS Vital Signs Vital signs: Vital Signs - 8 hr 05/07/25 16:53 05/07/25 16:54 05/07/25 16:54 Temperature Pulse Rate 63 Respiratory Rate Blood Pressure 178/86 H Pulse Oximetry 96 98 Oxygen Delivery Method 05/07/25 16:59 05/07/25 17:00 05/07/25 17:01 Temperature 97.9 F Pulse Rate 65 65 Respiratory Rate 14 Blood Pressure 178/86 H 144/80 H Pulse Oximetry 97 98 Oxygen Delivery Method Room Air 05/07/25 17:01 05/07/25 17:30 05/07/25 18:00 Temperature Pulse Rate 64 63 63 Respiratory Rate Blood Pressure Pulse Oximetry 97 95 97 Oxygen Delivery Method 05/07/25 18:30 05/07/25 18:33 05/07/25 18:33 Temperature Pulse Rate 67 64 Respiratory Rate Blood Pressure 173/90 H Pulse Oximetry 97 95 Oxygen Delivery Method 05/07/25 19:00 05/07/25 19:01 05/07/25 19:01 Temperature Pulse Rate 64 64 Respiratory Rate Blood Pressure 176/89 H Pulse Oximetry 97 98 Oxygen Delivery Method 05/07/25 19:29 05/07/25 20:25 Temperature Pulse Rate Respiratory Rate Blood Pressure 197/105 H Pulse Oximetry 99 Oxygen Delivery Method Medical Decision Making <Diamante Ramos, - Last Filed: 05/08/25 08:12> Lab Data 05/07/25 17:25 05/07/25 17:25 Labs: Lab Results 05/07/25 05/07/25 Range/Units 17:25 19:33 WBC 10.0 (4.5-11.0) X10^3/uL RBC 4.46 L (4.5-5.9) X10^6/uL Hgb 13.0 L (13.5-17.5) g/dL Hct 38.2 L (41-53) % MCV 85.6 (80-100) fL MCH 29.2 (26-34) PG MCHC 34.1 (30-36) % RDW 16.9 H (11.6-14.8) % Plt Count 141 L (150-400) X10^3/uL Neut % (Auto) 75.2 H (50-75) % Lymph % (Auto) 13.8 L (25-40) % Evangeline % (Auto) 6.7 (3-14) % Eos % (Auto) 2.6 (2-4) % Baso % (Auto) 1.7 (0-2) % Neut # (Auto) 7500 H (8836-5235) /uL Lymph # (Auto) 1400 (9891-8543) /uL Evangeline # (Auto) 700 (0-900) /uL Eos # (Auto) 300 (0-450) /uL Baso # (Auto) 200 H (0-100) /uL PT 14.4 H (9.4-12.5) SECONDS INR 1.3 (0.9-1.3) APTT 79 H* (25.1-36.5) SECONDS Sodium 134 L (137-145) mmol/L Potassium 5.6 H (3.4-5.1) mmol/L Chloride 95 L (98-107) mmol/L Carbon Dioxide 25 (22-32) mmol/L BUN 72 H (9-20) mg/dL Creatinine 7.07 H (0.66-1.25) mg/dL Estimated GFR 8 L (>60) mL/min BUN/Creatinine Ratio 10.2 (6-22) Glucose 125 H (70-99) mg/dL Lactate 1.2 (0.7-2.1) mmol/L Calcium 8.8 (8.4-10.2) mg/dL Total Bilirubin 0.5 (0.2-1.3) mg/dL AST 21 (17-59) IU/L ALT 6 (<50) IU/L Alkaline Phosphatase 51 (38-126) U/L Total Protein 7.8 (6.3-8.2) g/dL Albumin 4.4 (3.5-5.0) g/dL Globulin 3.4 (1.7-4.1) g/dL Albumin/Globulin Ratio 1.3 (1.0-2.8) MDM Narrative Medical decision making narrative: Labs Ultrasound Patient received pain medication Patient signed out to Dr. Matthew while awaiting work up. <Genevieve Matthew, DO - Last Filed: 05/07/25 20:53> Lab Data Labs: Lab Results 05/07/25 05/07/25 Range/Units 17:25 19:33 WBC 10.0 (4.5-11.0) X10^3/uL RBC 4.46 L (4.5-5.9) X10^6/uL Hgb 13.0 L (13.5-17.5) g/dL Hct 38.2 L (41-53) % MCV 85.6 (80-100) fL MCH 29.2 (26-34) PG MCHC 34.1 (30-36) % RDW 16.9 H (11.6-14.8) % Plt Count 141 L (150-400) X10^3/uL Neut % (Auto) 75.2 H (50-75) % Lymph % (Auto) 13.8 L (25-40) % Evangeline % (Auto) 6.7 (3-14) % Eos % (Auto) 2.6 (2-4) % Baso % (Auto) 1.7 (0-2) % Neut # (Auto) 7500 H (5594-5449) /uL Lymph # (Auto) 1400 (6474-6855) /uL Evangeline # (Auto) 700 (0-900) /uL Eos # (Auto) 300 (0-450) /uL Baso # (Auto) 200 H (0-100) /uL PT 14.4 H (9.4-12.5) SECONDS INR 1.3 (0.9-1.3) APTT 79 H* (25.1-36.5) SECONDS Sodium 134 L (137-145) mmol/L Potassium 5.6 H (3.4-5.1) mmol/L Chloride 95 L (98-107) mmol/L Carbon Dioxide 25 (22-32) mmol/L BUN 72 H (9-20) mg/dL Creatinine 7.07 H (0.66-1.25) mg/dL Estimated GFR 8 L (>60) mL/min BUN/Creatinine Ratio 10.2 (6-22) Glucose 125 H (70-99) mg/dL Lactate 1.2 (0.7-2.1) mmol/L Calcium 8.8 (8.4-10.2) mg/dL Total Bilirubin 0.5 (0.2-1.3) mg/dL AST 21 (17-59) IU/L ALT 6 (<50) IU/L Alkaline Phosphatase 51 (38-126) U/L Total Protein 7.8 (6.3-8.2) g/dL Albumin 4.4 (3.5-5.0) g/dL Globulin 3.4 (1.7-4.1) g/dL Albumin/Globulin Ratio 1.3 (1.0-2.8) Imaging Data US - DVT: Radiologist's Impression: PROCEDURE: US PERIPH VENOUS UP EXTREM RT INDICATIONS: wrong order, fistula swollen, hard 1 week old L forearm TECHNIQUE: Real-time imaging, as well as color and pulse Doppler interrogation, was performed of the upper extremity deep veins from the inferior neck to the antecubital fossa. COMPARISON: None. FINDINGS: The internal jugular vein, visualized portions of the subclavian vein, axillary, and brachial veins are free of intraluminal thrombus. Where physically possible, the veins are normally compressible. Color and pulse Doppler demonstrate normal intraluminal flow, with expected phasicity and pulsatility. Additional scanning of the cephalic and basilic veins of the superficial system demonstrates normal compressibility, without thrombus. Right upper arm soft tissue edema is seen. Anechoic collection is noted in anterior aspect of right elbow measures up to 4.1 x 5.8 x 2.3 cm in size and show no internal vascularity. Cephalic vein in distal upper arm is patent to the level of fistula. Right radial artery is patent at the fistula. Right cephalic vein at fistula show velocity of 164.3 cm/second. More proximal right cephalic vein show velocity of 352.8 cm/second. IMPRESSION: 1. No findings of upper extremity deep venous thrombosis can be seen. 2. Soft tissue edema in right upper extremity suggestive of cellulitis. 3. Possible seroma in right anterior elbow soft tissue measures 4.1 x 5.8 x 2.3 cm in size. 4. Right arm fistula is patent. Dictated by: Brien Isabel M.D. on 05/07/2025 at 18:26 MDM Narrative Medical decision making narrative: Labs Ultrasound Patient received pain medication Patient signed out to Dr. Matthew while awaiting work up. Dr. Matthew 1899 patient is signed out to me by Dr. Ramos I have seen evaluated patient myself. He recently had right forearm fistula placed at [place] 7 days ago. Presenting today with increasing swelling pain and redness over the fistula. has a good distal radial pulse No fever or chills. He is able to move his hands without any significant difficulty. He is feeling a little bit nauseous now. Blood work has been reviewed CBC shows leukocytosis of 10.0 no anemia hemoglobin 13 hematocrit 38.2 CMP mild hyperkalemia potassium is 5.6 it was previously 5.5 creatinine baseline 7.0 glucose 125 Lactic acid 1 point ultrasound shows no DVT soft tissue edema in right upper extremity suggestive of cellulitis. There is a possible seroma that measures 4.1 x 5.8 x 2.3 cm in size right arm fistula is patent. 1944 Dr. Gurrola, vascular surgery at [facility] updated on patient's symptoms test results. At this time agrees with the outpatient follow up and p.o. antibiotics Patient is given IV Rocephin. No concerning signs for sepsis Patient did start coughing vomiting. He reports that he was coughing so hard he did throw up. He has no abdominal pain his abdomen is soft and nontender. He is not having any increasing shortness of breath. He was not given any fluid accepts for IV Rocephin here in the ED no suspicion for fluid overload. Discussion with him if he wants further workup including a CT chest x-ray but he is overall feeling better he got some Zofran feeling better with just wants to go home. Discussion with him about his potassium which is 5.6. He says that is normal for him he is supposed to be taking medication to lower his potassium. He is also scheduled for dialysis tomorrow. Patient's forearm compartment is soft he is able to move his fingers he does have a palpable distal radial pulse. No concern for compartment syndrome at this time. Instructed patient to elevate arm and place ice on it. Differential diagnosis, DVT, fistula thrombosis sepsis, compartment syndrome Discharge Plan Departure Patient Disposition: Home Clinical Impression: Cellulitis, Seroma Instructions: DI for Cellulitis -- Adult Activity Restrictions/Additional Instructions: *You have been diagnosed with seroma /cellulitis *What to do: at this time keep arm elevated apply ice pack this will help with swelling. monitor redness *Continue to take medications as directed Keflex 500 mg 3 times a day for 7 days *Follow up with your primary care provider in 2-3 days or call [phone] call your vascular surgeon tomorrow to schedule follow-up appointment by end of next week *Return to ER if you should have increasing redness swelling pain[or] any new, worsening or concerning symptoms Prescriptions: New cephalexin 500 mg capsule 500 mg PO BID 7 Days Qty: 14 0RF No Action atorvastatin 80 mg tablet 80 mg PO DAILY levothyroxine 88 mcg tablet 88 mcg PO DAILY midodrine 10 mg tablet 10 mg PO 3XD insulin glargine [Lantus Solostar U-100 Insulin] 100 unit/mL (3 mL) insulin pen 14 unit SUBCUT BID Stand Alone Forms: Patient Portal/API
[2025-05-07 17:36] LABS: Add Manual Diff / Slide Review NO; Hematocrit 38.2 % (41-53); Hemoglobin 13.0 g/dL (13.5-17.5); Lymphocytes Absolute Auto 1400 /uL (1100-4500); Mean Corpuscular HGB Conc 34.1 % (30-36); Mean Corpuscular Hemoglobin 29.2 PG (26-34); Mean Corpuscular Volume 85.6 fL (80-100); Platelet Count 141 X10^3/uL (150-400)
[2025-05-07 17:43] LABS: INR 1.3 (0.9-1.3); Prothrombin Time 14.4 SECONDS (9.4-12.5)
[2025-05-07 17:47] LABS: Alanine Aminotransferase 6 IU/L (<50); Albumin 4.4 g/dL (3.5-5.0); Albumin Globulin Ratio 1.3 (1.0-2.8); Alkaline Phosphatase 51 U/L (38-126); Blood Urea Nitrogen 72 mg/dL (9-20); Calcium 8.8 mg/dL (8.4-10.2); Carbon Dioxide 25 mmol/L (22-32); Chloride 95 mmol/L (98-107); Estimated Glomerular Filt Rate 8 mL/min (>60); Globulin 3.4 g/dL (1.7-4.1); Glucose 125 mg/dL (70-99); HEMOLYSIS 30 (0-50); Potassium 5.6 mmol/L (3.4-5.1); Sodium 134 mmol/L (137-145); Total Protein 7.8 g/dL (6.3-8.2)
[2025-05-07 17:50] LABS: PTT Partial Thromboplastin Tim 79 SECONDS (25.1-36.5)
[2025-05-07] MEDS: MORPHINE 4 MG/ML INJ IV (17:52)
[2025-05-07] MEDS: ONDANSETRON 4 MG/2 ML INJ IV (19:36)
[2025-05-07 19:53] LABS: Lactate (Lactic Acid) 1.2 mmol/L (0.7-2.1)
== END 2025-05-07 20:45 | disposition home or self-care (01) ==
PROVIDERS: Emergency Medicine; Emergency Provider Emergency Medicine
DX: L03.113 Cellulitis of right upper limb (principal); L76.33 Postprocedural seroma of skin and subcutaneous tissue following a dermatologic procedure
CPT/HCPCS: 36415; 80053; 83605; 85025; 85610; 85730; 93971; 96365; 96375; 99284; J0696; J2272; J2405; J7050